=== PATIENT | female | born 1945 | race Caucasian/White ===

== ENCOUNTER → 2025-03-22 09:29 | Outpatient (REF) | payer MEDICARE, SELFPAY | LOC: MRI 3T 09:29 | PROVIDERS: ATTENDING PHYSICIAN Orthopaedic Surgery; FAMILY PHYSICIAN Family Medicine | DX: M79.641 Pain in right hand (principal); S61.204A Unspecified open wound of right ring finger without damage to nail, initial encounter | CPT/HCPCS: 73220; A9575 ==

== ENCOUNTER → 2025-03-27 12:20 | Outpatient (REF) | payer MEDICARE, SELFPAY | LOC: SDSPAT 12:20 | PROVIDERS: ATTENDING PHYSICIAN Orthopaedic Surgery; FAMILY PHYSICIAN Physician Assistant | DX: S61.204A Unspecified open wound of right ring finger without damage to nail, initial encounter (principal); Z01.818 Encounter for other preprocedural examination | CPT/HCPCS: 36415; 93005 ==

== ENCOUNTER 2025-03-31 18:08 | Inpatient (IN) | payer MEDICARE, SELFPAY ==
--- NOTE | 2025-03-26 16:49 | CM ---
TC from Negrita at Dr Simpson office requesting CM reach out to patient re possible home care services as patient lives alone and will be having surgery on 03/31/25. Spoke with patient she would like VN. Patient mentioned she would be leaving with a
PICC line and IV anbx and following up with ID in the office on 04/01. Patient is not aware of which infusion company she would be using. Patient does not feel she can self administer. TC back to Negrita at office, she was not aware of the anbx and
will reach out to patient and have her speak with ID. No services were arranged by this rn field case manager until discharge plan is finalized with surgeon office.
[2025-03-30 13:43] VITALS: BMI 18.6
[2025-03-31] VITALS (14 sets, daily range): BP systolic 110–161; BP diastolic 61–87; BMI 18.6
[2025-03-31] MEDS: NORMOSOL-R/PLASMALYTE-A 1000 IV (08:42)
--- NOTE | 2025-03-31 14:06 | HPS.HSE ---
Addendum entered and electronically signed by Noel Bueno MD 03/31/25 14:33:
This is an addendum to the H&P written by Ángela Saenz on 03/31/2025. Patient seen and examined independently with [facility].
Addendum entered and electronically signed by Noel Bueno MD 03/31/25 14:32:
79-year-old female past medical history of osteoarthritis, gout, rheumatoid arthritis,�migraine with aura presenting for amputation for severe wound affecting the right ring finger with deviation and middle finger. �She had an enlarging mass on the
right fourth finger that she neglected for a year and saw Dr. Yuan 1 month ago.
Prior MRI showed possible osteomyelitis into the metacarpal.
She underwent amputation of right fourth finger and third finger and partial ampuation of 5th digit. �Intraoperative cultures were obtained. 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
Continue empiric cefazolin. �ID consulted to determine regimen of antibiotics. Pain control.�
Written in chart the patient has itchy eyes from Keflex but did tolerate cefazolin in the operating room.
Original Note:
Family Physician
-
Family Physician: Sara Powell
Chief Complaint
-
Status post amputation right third, fourth, partial fifth finger
History of Present Illness
79 Year old female who states Who states she has had ongoing growth to her right 3rd and 4th finger along with the volar surface of her base of the fifth finger x 1 year. She reports it became swollen and red approximately 1 month ago that is when
she decided to have it evaluated by Dr. Yuan she had outpatient MRI showing osteomyelitis into the metacarpal she was started on outpatient Levaquin and then stopped 1 week ago for procedure today which required amputation of the right hand third,
fourth finger and partial proximal phalanx of the fifth finger. She also reports stopping aspirin 81 mg 1 week ago. She tolerated preop IV Ancef despite Keflex allergy with itchy eyes. She does report she gets hallucinations from
oxycodone/Percocet. She had a digital block of her right arm in the OR currently has a long-arm OCL splint in place other digits are pink and interior design professional color. She has past medical history of left hand severe OA mild RA of the DIP and PIP joints,
right handed, rheumatoid arthritis, gout, migraines.
Medical History
Past Medical History
Past Medical History: Reports Other
Additional Past Medical History:
left hand severe OA mild RA of the DIP and PIP joints
right handed
Osteoarthritis hands and feet
rheumatoid arthritis
gout
migraines.
Past Surgical History: Reports Other
Additional Past Surgical History:
Hysterectomy
Bilateral CTR
Left middle finger middle phalanx infection debridement 1979
Left great toe debridement secondary to infection
Tonsillectomy adenoidectomy
Social History
Tobacco: Non-smoker
Alcohol: Occasional
Drug: None
Personal: Single
Living: Alone
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
Family History
Family History: Other (Father prostate cancer, mother history of CAD, father and mother osteoarthritis)
Allergies / Home Medications
Allergies reflects when Allergies were last updated in [employer].
Home Medications with original date entered in [employer]
Allergy/Medication List:
Allergies
Allergy/AdvReac Type Severity Reaction Status Date / Time
oxycodone Allergy Mild Pharmacy Verified 03/31/25 14:00
to Review
methotrexate Allergy Unknown Pharmacy Verified 03/31/25 14:00
to Review
cephalexin (From Keflex) Allergy itchy eyes Verified 03/31/25 08:20
pollen extracts Allergy sneezing,itchy Verified 03/31/25 08:20
eyes,congestion
Home Medications
Fish Oil 1 cap PO DAILY 03/26/25
Vitamin C 1 tab PO DAILY 03/26/25
Vitamin D3 1 cap PO DAILY 03/26/25
levofloxacin 750 mg tablet 750 mg PO DAILY 03/26/25
vitamin B complex 1 tab PO DAILY 03/26/25
vitamin E 1 cap PO DAILY 03/26/25
Benadryl 25 mg PO HS PRN insomnia 03/31/25
Calcium 600 600 mg PO DAILY 03/31/25
Excedrin Migraine 2 tab PO Q6H PRN Migraine headache 03/31/25
acetaminophen 500 mg tablet 500 mg PO Q6H PRN pain 03/31/25
magnesium glycinate 1 chewable tab PO HS 03/31/25
Review of Systems
-
History Source: Patient
A 12 point ROS was completed and negative except as noted: Yes
Constitutional: Denies Fever or Chills
EENT: Denies Sore Throat or Runny Nose
Respiratory: Denies Cough or Trouble Breathing
Cardiac: Denies Chest Pain, Diaphoresis or Palpitations
Abdomen/GI: Denies Abdominal Pain, Nausea, Vomiting, Diarrhea or Constipated
: Denies Dysuria, Frequency, Flank Pain or Incontinence
Musculoskeletal: Reports Other (Status post amputation right third, fourth, partial proximal phalanx fifth finger due to abnormal growth/cellulitis/osteomyelitis); Denies Joint Pain
Skin: Denies Itching or Rash
Neurological: Denies Dizzy, Headache or Weakness
Endocrine: Reports No Symptoms
Hematologic/Lymphatic: Reports No Symptoms
Psych: Reports Calm
Physical Exam
Vital Signs
Vital Signs
Temp Pulse Resp BP Pulse Ox
97.8 F 81 23 118/63 94
03/31/25 12:38 03/31/25 13:30 03/31/25 13:30 03/31/25 13:30 03/31/25 13:35
Physical Exam
General: No Pain, Fever or Chills
HEENT: NormoCephalic, Anicteric, Moist mucous membranes, PERRLA, [place] Conjunctivae and No Ptosis
Respiratory: Clear; No Wheezes, Rales or Rhonchi
Cardiac: S1/S2 and Regular Rhythm
Breast: Deferred by me
GI: Soft, Non Tender, Non Distended, Normal Bowel Sounds and No Hepatosplenomegaly
Rectal: Deferred by Provider
Musculoskeletal: No Clubbing, No Cyanosis, No Edema and Other (Status post amputation right third, fourth, partial proximal phalanx fifth finger due to abnormal growth/cellulitis/osteomyelitis with long-arm OCL splint in place, digital block in
operating room currently still numb thumb index finger pink, warm, left hand deformities of the DIP and PIP joints on )
Skin: Warm and Dry; No Rash
Neuro: AO x 3, Cranial Nerves Intact and No Sensory Deficits; No Slurred Speech, Facial Droop, Tremors or Sedated
Psych: Calm
Data Reviewed
-
Diagnostic Radiology: Report Reviewed by me
Impression/Plan
-
Impression/plan:
Postop admission MedSurg
#Status post amputation right third, fourth, partial fifth finger due to osteomyelitis/abnormal growth/cellulitis concern for malignancy
-Patient received digital block in the operating room
-Patient tolerated IV Ancef preop will continue
- Consult infectious disease
- Continue current OCL splint in place
- Pain control will try Vicodin as patient reports hallucinations to Percocet in past, IV Dilaudid for severe pain
- IV Zofran as needed
- Regular diet
- Pending culture of amputated sites-concern for malignancy may require outpatient follow-up heme onc
-May continue on aspirin 81 mg daily per Ortho
- Consult PT/case management
#History of severe osteoarthritis
#Chronic deformities to bilateral hands DIP PIP joints and bilateral toes
- May resume, her vitamin D , calcium at home
#History RA
Reports severe reaction to methotrexate in the past no longer on meds
#History of migraines no current migraine
May take own Excedrin as needed
#Insomnia
Continue as needed Benadryl and magnesium glycine 8 at bedtime
DVT prophylaxis
SCDs
Full code
--- NOTE | 2025-03-31 14:30 | CON.ID ---
Consultation
-
Date/Time Consultation Requested: 03/31/2025 1415
Date/Time Consultation Performed: 03/31/2025 1430
Requesting Provider: KISHA Hammonds
Performing Provider: Dr. Di Patterson
Reason for Consultation: Osteo vs cancer of finger
Chief Complaint / Past History
Chief Complaint
Right 4th finger wound
History of Present Illness
79 year old female with , gout is seen at the request of KISHA Hammonds for possible finger osteomyelitis. She reports she has a growth/mass over the proximal 4th finger (palm side) for more than 1 year. The growth extended to the proximal
middle finger. Eventually the whole fourth finger tissue became thickened. 2 months ago, the 4th finger became more swollen. No fevers or chills. No purulent drainage. She went to on 03/15; culture swabbed and she was placed on doxycycline plus
Bactrim. She was referred to and seen by Ortho 03/18. There was concern for cancer. MRI recommended for eventual amputation. In the meantime, the 03/15 wound swab grew Pseudomonas (pansensitive), Bacteroides, and staph epi; Urgent care called her
and replaced doxy/Bactrim with levofloxacin 750mg po qd without improvement. MRI showed large amt of irregular enhancing soft tissue about the 4th and 3rd fingers with destructive changes proximally, signal change mid to distal 4th metacarpal. Pt
instructed to dc abx on 03/25 in preparation for finger amputation. Today. she underwent 3rd and 4th finger amputations, and partial 5th digit amputation. Path and cx pending.
Past History
Additional Past Medical History:
Migraine WILKINS
Severe arthritis of bilateral hands and toes
hx Gout (toe)
Additional Past Surgical History:
Hysterectomy
bilateral carpal tunnel release
Toe surgery from gout
left 4th middle finger surgery - gout vs infection
Allergy History:
oxycodone Allergy (Mild, Verified 03/31/25 14:00)
Pharmacy to Review
methotrexate Allergy (Unknown, Verified 03/31/25 14:00)
Pharmacy to Review
cephalexin (From [facility])
GI upset
pollen extracts Allergy (Verified 03/31/25 08:20)
sneezing,itchy eyes,congestion
Medications Reviewed: Yes
Current Antibiotics:
Cefazolin
Social History
Tobacco: Non-Smoker
Alcohol: None
Drug: None
Living: Alone
Family History
Family History: Not Pertinent
Review of Systems
Review of Systems
General: Negative Fever, Chills or Change in Appetite
HEENT: Negative Sinus Problems or Headache
Cardiovascular: Negative Chest Pain or Dyspnea
Respiratory: Negative Dyspnea or Cough
Gasteroenterology: Negative Weight Loss, Nausea, Vomiting or Diarrhea
Genital / Urological: Negative Dysuria or Flank Pain
Endocrine: Negative Weakness
All systems: All other systems were reviewed and were negative
Vital Signs
Temp Pulse Resp BP Pulse Ox
97.8 F 81 18 123/67 96
03/31/25 13:50 03/31/25 14:15 03/31/25 14:15 03/31/25 14:15 03/31/25 14:15
Physical Exam
Physical Exam
Constitutional: No Acute Distress, Comfortable and Cachetic
Head: Other (No frontal or maxillary sinus tenderness)
Eyes: No Conjunctival Hemorrhage and Sclera Anicteric
Cardiovascular: Regular Rate and S1/S2
Pulmonary: Clear
Gastrointestinal: Soft, Non Tender, Non Distended and Normal Bowel Sounds
Extremities: Negative Edema
Wound: Other (Right hand post-op dressing in place)
Neurological: AO x 3
Microbiology Results
Micro:
03/31/25 12:30 Tissue Culture - Pending
Bone Gram Stain - Pending
03/22/25 MRI RUE wo and w contrast: Large amount of irregular enhancing soft tissue about the fourth finger proximal and middle phalanges. Primary considerations include marked soft tissue pannus formation in the setting of a severe inflammatory
arthropathy such as rheumatoid arthritis, versus a malignant mass. Destructive changes and signal alteration of the fourth proximal and middle phalanges, and signal alteration of the mid to distal fourth metacarpal, which may be secondary to a
severe inflammatory arthropathy, malignancy, or potentially osteomyelitis if there are signs and symptoms of infection. Recommend clinical correlation with consideration for soft tissue sampling if indicated.
Assessment / Plan
# Suspected malignancy of right 3rd and 4th fingers
- 03/31 s/p amputations of 3rd/4th digits, partial amp 5th digit
- Await bone path, bone cx
- I don't anticipate need for prolonged IV abx, unless evidence of osteo on pathology without achieving surgical cure.
- Case management consulted for placement as per family request.
--- NOTE | 2025-03-31 15:35 | CM ---
Addendum entered by Maria E Pleitez RN 03/31/25 16:05:
CM spoke with patient and daughter. THey are agreeable to SNF. Patient and family would like [facility], [facility] or [facility]. Patient's [facility] choice [facility].
CM sent referral via [facility].
Original Note:
CM spoke with patient at length regarding SNF placement via phone. Patient understands she will need placement.
--- NOTE | 2025-03-31 16:13 | CM ---
Addendum entered by Maria E Pleitez RN 03/31/25 16:15:
Patient is not eligible for [employer] Waiver.
Original Note:
CM inquired if patient is [employer] eligible. CM will await feedback.
[2025-03-31] MEDS: TYLENOL 650 MG PO (16:21)
[2025-03-31] MEDS: ANCEF 5 IV (19:45)
[2025-03-31] MEDS: LOW STRENGTH ASPIRIN 81 MG PO (19:45)
[2025-03-31] MEDS: NORCO 5/325 1 TABLET PO (19:50)
[2025-03-31 20:13] LABS: Hematocrit 31.3 % (37.0-47.0); Hemoglobin 9.4 g/dL (12.0-16.0); Mean Corp Hgb Conc. 30.0 g/dL (33.0-37.0); Mean Corpuscular Volume 106.5 fL (81.0-99.0); Nucleated Red Blood Cells % 0.2 %; Platelet Count 243 10^3/uL (130-400); Red Cell Dist. Width 15.9 % (11.5-14.5)
[2025-03-31 20:29] LABS: ALT (SGPT) 13 U/L (0-35); AST (SGOT) 18 U/L (14-36); Albumin 3.1 g/dl (3.5-5.0); Alkaline Phosphatase 100 U/L (38-126); Blood Urea Nitrogen 14 mg/dl (7-17); Calcium 8.1 mg/dl (8.4-10.2); Carbon Dioxide 26 mmol/L (22-30); Chloride 103 mmol/L (98-107); Estimated Creatinine Clearance 52 ml/min; Glucose 149 mg/dl (70-99); Potassium 4.6 mmol/L (3.5-5.1); Sodium 133 mmol/L (135-145); Total Protein 5.4 g/dl (6.3-8.2); eGFR > 60.00
[2025-04-01] MEDS: DILAUDID 0.5 MG IV ×2 (02:14→08:31)
[2025-04-01] MEDS: ANCEF 5 IV (04:47)
[2025-04-01 08:05] LABS: Hematocrit 29.4 % (37.0-47.0); Hemoglobin 8.8 g/dL (12.0-16.0); Mean Corp Hgb Conc. 29.9 g/dL (33.0-37.0); Mean Corpuscular Volume 109.3 fL (81.0-99.0); Nucleated Red Blood Cells % 0 %; Platelet Count 203 10^3/uL (130-400); Red Cell Dist. Width 15.9 % (11.5-14.5)
[2025-04-01 08:17] VITALS: BP 136/75
[2025-04-01] MEDS: LOW STRENGTH ASPIRIN 81 MG PO ×2 (08:27→19:45)
[2025-04-01 08:37] LABS: ALT (SGPT) 10 U/L (0-35); AST (SGOT) 22 U/L (14-36); Albumin 2.8 g/dl (3.5-5.0); Alkaline Phosphatase 82 U/L (38-126); Blood Urea Nitrogen 11 mg/dl (7-17); Calcium 7.9 mg/dl (8.4-10.2); Carbon Dioxide 28 mmol/L (22-30); Chloride 107 mmol/L (98-107); Estimated Creatinine Clearance 52 ml/min; Glucose 86 mg/dl (70-99); Potassium 4.2 mmol/L (3.5-5.1); Sodium 135 mmol/L (135-145); Total Protein 4.8 g/dl (6.3-8.2); eGFR > 60.00
--- NOTE | 2025-04-01 09:23 | CM ---
Addendum entered by Annemarie Ybarra RN 04/01/25 15:35:
Patient agreeable with [facility]. CM spoke with [facility]. Will have a bed on Sunday for patient. No precert required.
Original Note:
Reviewed the chart notes and spoke with the patient at the bedside. Reviewed with the patient that [facility] and [facility] would need financial application prior to admission. CM continues to be available to patient/family and is
monitoring medical plan for needs at discharge.
Plan: Discharge to SNF/rehab prior to transitioning back to home.
[2025-04-01 11:25] VITALS: BP 120/66
[2025-04-01 11:49] VITALS: BP 122/74; PULSE 80; O2SAT 100
[2025-04-01 12:08] VITALS: BMI 18.6
[2025-04-01] MEDS: ANCEF IV (12:30)
[2025-04-01] MEDS: NORCO 5/325 1 TABLET PO ×3 (13:09→21:37)
--- NOTE | 2025-04-01 13:32 | W.PN.ID1 ---
Date of Service
Date of Service: April 01, 2025
Today's Communication
Change abx to cefepime.
Assessment / Plan
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
- 03/31 s/p amputations of 3rd/4th digits, partial amp 5th digit
- Await bone path
- Tissue cx GNR
- Replace cefazolin with cefepime 1g IVq6h
- If path not available by Sunday, anticipate dc to SNF on IV abx pending final bone pathology
Chief Complaint
-: Other (finger issue)
Subjective / Review of Systems
c/o post-op pain, will ask for Dilaudid after lunch.
Vital Signs / Physical Exam
Vital Signs
Vital Signs
Temp Pulse Resp BP Pulse Ox
98 F 69 16 136/75 98
04/01/25 08:17 04/01/25 08:17 04/01/25 08:17 04/01/25 08:17 04/01/25 08:17
Physical Exam
Constitutional: No Acute Distress and Comfortable
Cardiovascular: Regular Rate and S1/S2
Pulmonary: Clear
Gastrointestinal: Soft, Non Tender, Non Distended and Normal Bowel Sounds
Genito-Urinary: Negative CVA Tenderness
Extremities: Negative Edema
Wound: Other (right hand post-op dressing in place)
Neurological: AO x 3
Objective Data
Lab Data
Lab Results
04/01/25 07:05
04/01/25 07:05
Estimated Creat Clear 52 ml/min 04/01/25 07:05
Total Bilirubin 0.3 mg/dl (0.2-1.3) 04/01/25 07:05
AST 22 U/L (14-36) 04/01/25 07:05
ALT 10 U/L (0-35) 04/01/25 07:05
Alkaline Phosphatase 82 U/L (38-126) 04/01/25 07:05
Most recent labs reviewed.
Micro Results:
03/31/25 12:30 Tissue Culture - Preliminary
Bone Gram negative bacilli
Gram Stain - Preliminary
03/22/25 MRI RUE wo and w contrast: Large amount of irregular enhancing soft tissue about the fourth finger proximal and middle phalanges. Primary considerations include marked soft tissue pannus formation in the setting of a severe inflammatory
arthropathy such as rheumatoid arthritis, versus a malignant mass. Destructive changes and signal alteration of the fourth proximal and middle phalanges, and signal alteration of the mid to distal fourth metacarpal, which may be secondary to a
severe inflammatory arthropathy, malignancy, or potentially osteomyelitis if there are signs and symptoms of infection. Recommend clinical correlation with consideration for soft tissue sampling if indicated.
[2025-04-01] MEDS: STERILE WATER FOR INJECTION 10 ML IV ×2 (14:30→19:46)
[2025-04-01] MEDS: MAXIPIME 1000 MG IV ×2 (14:30→19:45)
--- NOTE | 2025-04-01 15:19 | W.PN.HOSP.TC ---
Today's Communication/Plan
-
Assessment / Plan
Assessment / Plan
General: No Apparent Distress, Comfortable and Conversant
HEENT: NormoCephalic, Moist mucous membranes, Atraumatic
Respiratory: Clear and Non Labored Respirations
Cardiac: S1/S2 and Regular Rhythm; No Rub or Gallop
GI: Soft, Non Tender, Non Distended and Normal Bowel Sounds
Musculoskeletal: No Edema, right hand with the surgical dressing in place with wrap extending to just distal to the elbow
Skin: Warm and dry
: NO Haji
Neuro: Awake, Alert, Nonfocal/grossly intact
Psych: Calm and Intact Judgment/Insight
Ms. Doan is a 79-year-old female with a medical history of severe osteoarthritis, rheumatoid arthritis, migraines, and recent diagnosis of melanoma of right hand who was admitted following amputation of her right 3rd and 4th fingers along with the
volar aspect at the base of her fifth finger.
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
- Status post amputation of right 3rd and 4th digit with additional partial amputation of fifth digit
- Tolerated procedure well
- Continue pain control as needed
- Antibiotics switched to cefepime
- Awaiting bone pathology
Migraines:
- Fioricet as needed
DVT prophylaxis: SCDs
CODE STATUS: Full code
Anticipated Discharge: > 48 hours
Subjective/Interval History
-
Date of Service: April 01, 2025
Patient was seen and examined at bedside this morning. She was admitted following amputation of multiple digits on her right hand. Having pain in her right hand now that nerve block has worn off.
Objective Data
-
Labs:
Laboratory Results
04/01/25
07:05
WBC 6.1
Hgb 8.8 L
Hct 29.4 L
Plt Count 203
Sodium 135
Potassium 4.2
Chloride 107
Carbon Dioxide 28
BUN 11
Creatinine 0.5 L
Glucose 86
Calcium 7.9 L
Total Bilirubin 0.3
AST 22
ALT 10
Alkaline Phosphatase 82
Vital Signs:
Vital Signs
Temp Pulse Resp BP Pulse Ox
98 F 69 16 136/75 98
04/01/25 08:17 04/01/25 08:17 04/01/25 08:17 04/01/25 08:17 04/01/25 08:17
I&O
03/31/25 04/01/25 04/02/25
06:59 06:59 06:59
Intake Total 920 / 920
Balance 920 / 920
Review of Systems
-
History Source: Patient
All other systems: Reviewed and negative
Musculoskeletal: Reports Joint Pain (Right hand pain)
Neuro: Reports Headache
Physical Exam
-
General: No Apparent Distress
[2025-04-01 15:30] VITALS: BP 125/73
[2025-04-01 23:18] VITALS: BP 125/66
[2025-04-02] MEDS: STERILE WATER FOR INJECTION 10 ML IV ×4 (01:34→20:01)
[2025-04-02] MEDS: NORCO 5/325 1 TABLET PO ×5 (01:35→19:59)
[2025-04-02] MEDS: MAXIPIME 1000 MG IV ×4 (01:35→20:01)
[2025-04-02 06:42] LABS: Hematocrit 31.2 % (37.0-47.0); Hemoglobin 9.1 g/dL (12.0-16.0); Mean Corp Hgb Conc. 29.2 g/dL (33.0-37.0); Mean Corpuscular Volume 110.6 fL (81.0-99.0); Nucleated Red Blood Cells % 0 %; Platelet Count 214 10^3/uL (130-400); Red Cell Dist. Width 15.9 % (11.5-14.5)
[2025-04-02 06:58] LABS: ALT (SGPT) 11 U/L (0-35); AST (SGOT) 16 U/L (14-36); Albumin 2.8 g/dl (3.5-5.0); Alkaline Phosphatase 93 U/L (38-126); Blood Urea Nitrogen 13 mg/dl (7-17); Calcium 8.1 mg/dl (8.4-10.2); Carbon Dioxide 29 mmol/L (22-30); Chloride 106 mmol/L (98-107); Estimated Creatinine Clearance 52 ml/min; Glucose 87 mg/dl (70-99); Potassium 4.2 mmol/L (3.5-5.1); Sodium 136 mmol/L (135-145); Total Protein 4.8 g/dl (6.3-8.2); eGFR > 60.00
--- NOTE | 2025-04-02 07:35 | W.PN.UPDATE ---
Update Note
Progress Note Update
The patient was seen and examined by Orthopedic surgery on rounds. POD #2 RIGHT ring and middle finger ray amputation, Z-plasty closure and full-thickness skin graft performed on 03/31/2025 under the direction of Dr. Yuan. Tissue culture (+) GNR. On
Cefepime 1gIV q6h per ID. Bone pathology pending. Maintain surgical dressing/splint and patient will return to the office in about a week for a wound check. Planning on removing the sutures approximately 2 to 3 weeks from the surgery. Orthopedic
surgery will continue to follow along.
[2025-04-02] MEDS: FIORICET 1 TAB PO (07:52)
[2025-04-02] MEDS: LOW STRENGTH ASPIRIN 81 MG PO ×2 (07:54→19:59)
[2025-04-02 07:55] VITALS: BP 144/68
--- NOTE | 2025-04-02 11:06 | W.PN.ID1 ---
Date of Service
Date of Service: April 02, 2025
Today's Communication
See below.
Assessment / Plan
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
- 03/31 s/p amputations of 3rd/4th digits, partial amp 5th digit
- Await bone path
- Tissue cx Pseudomonas
- Continue cefepime 1g IVq6h x 6 weeks through 05/12/25.
If final bone pathology shows no osteo, will call SNF to dc abx.
Follow weekly CBC and CMP while on abx.
- Infusion sheet submitted to rn case mgr.
- Place PICC tomorrow.
Chief Complaint
-: Other (finger issue)
Subjective / Review of Systems
Currently experiencing migraine headaches.
Vital Signs / Physical Exam
Vital Signs
Vital Signs
Temp Pulse Resp BP Pulse Ox
97.5 F 71 18 144/68 96
04/02/25 07:55 04/02/25 07:55 04/02/25 07:55 04/02/25 07:55 04/02/25 07:55
Physical Exam
Constitutional: No Acute Distress
Cardiovascular: Regular Rate and S1/S2
Pulmonary: Clear
Gastrointestinal: Soft, Non Tender, Non Distended and Normal Bowel Sounds
Genito-Urinary: Negative CVA Tenderness
Extremities: Negative Edema
Wound: Other (right hand post-op dressing in place)
Neurological: AO x 3
Objective Data
Lab Data
Lab Results
04/02/25 06:07
04/02/25 06:07
Estimated Creat Clear 52 ml/min 04/02/25 06:07
Total Bilirubin 0.1 mg/dl (0.2-1.3) L 04/02/25 06:07
AST 16 U/L (14-36) 04/02/25 06:07
ALT 11 U/L (0-35) 04/02/25 06:07
Alkaline Phosphatase 93 U/L (38-126) 04/02/25 06:07
Most recent labs reviewed.
Micro Results:
03/31/25 12:30 Tissue Culture - Preliminary
Bone Pseudomonas aeruginosa
Gram Stain - Preliminary
03/22/25 MRI RUE wo and w contrast: Large amount of irregular enhancing soft tissue about the fourth finger proximal and middle phalanges. Primary considerations include marked soft tissue pannus formation in the setting of a severe inflammatory
arthropathy such as rheumatoid arthritis, versus a malignant mass. Destructive changes and signal alteration of the fourth proximal and middle phalanges, and signal alteration of the mid to distal fourth metacarpal, which may be secondary to a
severe inflammatory arthropathy, malignancy, or potentially osteomyelitis if there are signs and symptoms of infection. Recommend clinical correlation with consideration for soft tissue sampling if indicated.
--- NOTE | 2025-04-02 11:10 | CM ---
Addendum entered by Annemarie Ybarra RN 04/02/25 16:07:
IMM reviewed.
Original Note:
Reviewed the chart notes and spoke with the patient at the bedside. Reviewed with patient that [facility] will have a bed tomorrow. Patient's daughtger will provide transportation SNF. CM continues to be available to patient/family and is monitoring
medical plan for needs at discharge.
Plan: Discharge to [facility] tomorrow (Sunday). No precert required.
Call report to: [phone]
Fax report to: [phone]
--- NOTE | 2025-04-02 13:38 | W.PN.HOSP.TC ---
Today's Communication/Plan
-
Assessment / Plan
Assessment / Plan
General: No Apparent Distress, having a migraine
HEENT: NormoCephalic, Moist mucous membranes, Atraumatic
Respiratory: Clear and Non Labored Respirations
Cardiac: S1/S2 and Regular Rhythm; No Rub or Gallop
GI: Soft, Non Tender, Non Distended and Normal Bowel Sounds
Musculoskeletal: No Edema, right hand with the surgical dressing in place with wrap extending to just distal to the elbow
Skin: Warm and dry
: NO Haji
Neuro: Awake, Alert, Nonfocal/grossly intact
Psych: Calm and Intact Judgment/Insight
Ms. Doan is a 79-year-old female with a medical history of severe osteoarthritis, rheumatoid arthritis, migraines, and recent diagnosis of melanoma of right hand who was admitted following amputation of her right 3rd and 4th fingers along with the
volar aspect at the base of her fifth finger.
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
- Status post amputation of right 3rd and 4th digit with additional partial amputation of fifth digit
- Tolerated procedure well
- Bone cultures growing Pseudomonas, ID recommending continuing cefepime 1 g IV every 6 hours for 6 weeks through 05/12/2025
- Planning PICC placement tomorrow
- Continue pain control as needed
Migraines:
- Fioricet as needed
DVT prophylaxis: SCDs
CODE STATUS: Full code
Anticipated Discharge: 24 - 48 hours
Subjective/Interval History
-
Date of Service: April 02, 2025
Patient was seen and examined at bedside this morning. Had another migraine headache, some relief with medications.
Objective Data
-
Labs:
Laboratory Results
04/02/25
06:07
WBC 5.1
Hgb 9.1 L
Hct 31.2 L
Plt Count 214
Sodium 136
Potassium 4.2
Chloride 106
Carbon Dioxide 29
BUN 13
Creatinine 0.5 L
Glucose 87
Calcium 8.1 L
Total Bilirubin 0.1 L
AST 16
ALT 11
Alkaline Phosphatase 93
Vital Signs:
Vital Signs
Temp Pulse Resp BP Pulse Ox
97.5 F 71 18 144/68 96
04/02/25 07:55 04/02/25 07:55 04/02/25 07:55 04/02/25 07:55 04/02/25 07:55
I&O
04/01/25 04/02/25 04/03/25
06:59 06:59 06:59
Intake Total 920 / 920 480 / 480
Balance 920 / 920 480 / 480
Review of Systems
-
History Source: Patient
All other systems: Reviewed and negative
Neuro: Reports Headache (Migraine)
Physical Exam
-
General: No Apparent Distress
[2025-04-02 15:20] VITALS: BP 120/63
[2025-04-02 15:44] VITALS: BP 120/63
[2025-04-02] MEDS: SENOKOT-S 1 TABLET PO (21:36)
[2025-04-02 23:18] VITALS: BP 114/58
[2025-04-03] MEDS: NORCO 5/325 1 TABLET PO ×4 (00:12→13:21)
[2025-04-03] MEDS: MAXIPIME 1000 MG IV ×3 (02:20→15:00)
[2025-04-03] MEDS: STERILE WATER FOR INJECTION 10 ML IV ×3 (02:20→15:01)
--- NOTE | 2025-04-03 04:24 | PTCARENOTE ---
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
[2025-04-03 07:50] VITALS: BP 135/64
--- NOTE | 2025-04-03 07:56 | W.PN.UPDATE ---
Update Note
Progress Note Update
The patient was seen and examined by Orthopedic surgery on rounds. POD #3 RIGHT ring and middle finger ray amputation, Z-plasty closure and full-thickness skin graft performed on 03/31/2025 under the direction of Dr. Yuan. Tissue culture (+)
Psuedomonas aeruginosa. On Cefepime 1gIV q6h per ID - appreciate their recommendations. Bone pathology pending. Plan for PICC line placement today with discharge to rehab to assist with IV antibiotics post operatively. Maintain surgical
dressing/splint and patient will return to the office in about a week for a wound check. Planning on removing the sutures approximately 2 to 3 weeks from the surgery. Orthopedic surgery will continue to follow along.
[2025-04-03] MEDS: LOW STRENGTH ASPIRIN 81 MG PO (08:59)
--- NOTE | 2025-04-03 11:02 | W.PN.ID1 ---
Date of Service
Date of Service: April 03, 2025
Today's Communication
DC to SNF today.
Assessment / Plan
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
- 03/31 s/p amputations of 3rd/4th digits, partial amp 5th digit
- Await bone path
- Tissue cx Pseudomonas
- Continue cefepime 1g IVq6h x 6 weeks through 05/12/25.
If final bone pathology shows no osteo, will call SNF to dc abx.
Follow weekly CBC and CMP while on abx.
- Infusion sheet submitted to case hardener.
- Place PICC today.
- For DC to SNF today.
Chief Complaint
-: Other (finger issue)
Subjective / Review of Systems
Feels well.
Vital Signs / Physical Exam
Vital Signs
Vital Signs
Temp Pulse Resp BP Pulse Ox
97.9 F 72 18 135/64 97
04/03/25 07:50 04/03/25 07:50 04/03/25 07:50 04/03/25 07:50 04/03/25 07:50
Physical Exam
Constitutional: No Acute Distress
Cardiovascular: Regular Rate and S1/S2
Pulmonary: Clear
Gastrointestinal: Soft, Non Tender, Non Distended and Normal Bowel Sounds
Extremities: Negative Edema
Wound: Other (right hand post-op dressing in place)
Neurological: AO x 3
Objective Data
Lab Data
Lab Results
04/02/25 06:07
04/02/25 06:07
Estimated Creat Clear 52 ml/min 04/02/25 06:07
Total Bilirubin 0.1 mg/dl (0.2-1.3) L 04/02/25 06:07
AST 16 U/L (14-36) 04/02/25 06:07
ALT 11 U/L (0-35) 04/02/25 06:07
Alkaline Phosphatase 93 U/L (38-126) 04/02/25 06:07
Most recent labs reviewed.
Micro Results:
03/31/25 12:30 Tissue Culture - Final
Bone Pseudomonas aeruginosa
Gram Stain - Final
Procedure Result Verified
Tissue Culture Final 04/03/25-857
Few Pseudomonas aeruginosa
CRITICAL VALUE called to and read back verification by
[id number] on 04/01/25 at 1126 by [email or web address]. COPY PRINTED to
printer #[id number]
Organism 1 Pseudomonas aeruginosa
1. Pseudomonas aeruginosa
M.I.C. RX
--------- ---
Aztreonam <=4 S
Cefepime <=2 S
Ceftazidime 4 S
Ciprofloxacin <=0.25 S
Meropenem <=1 S
Piperacillin/Tazobactam <=8 S
Tobramycin <=2 S
03/22/25 MRI RUE wo and w contrast: Large amount of irregular enhancing soft tissue about the fourth finger proximal and middle phalanges. Primary considerations include marked soft tissue pannus formation in the setting of a severe inflammatory
arthropathy such as rheumatoid arthritis, versus a malignant mass. Destructive changes and signal alteration of the fourth proximal and middle phalanges, and signal alteration of the mid to distal fourth metacarpal, which may be secondary to a
severe inflammatory arthropathy, malignancy, or potentially osteomyelitis if there are signs and symptoms of infection. Recommend clinical correlation with consideration for soft tissue sampling if indicated.
--- NOTE | 2025-04-03 11:28 | W.DCSUMMARY ---
Discharge Summary
Discharge Data
Date of Admission: 03/31/25
Date of Discharge: 04/03/25
Total time spent discharging patient (in min): 40
-
Pending Results: No
Hospital Course
Ms. Doan is a 79-year-old female with a medical history of severe osteoarthritis, rheumatoid arthritis, migraines, and recent diagnosis of melanoma of right hand who was admitted following amputation of her right 3rd and 4th fingers along with the
volar aspect at the base of her fifth finger. She tolerated the procedure well. Operative cultures grew Pseudomonas aeruginosa. She was started on antibiotic treatment with IV cefepime 1 g every 8 hours which she will continue for 6 weeks through
05/12/2025. A PICC line was placed prior to her being discharged to SNF where she will continue IV antibiotic treatment. She will follow-up in the orthopedic office in 1 week for a wound check. They are planning to remove the sutures in 2 to 3
weeks postoperatively. Her pain has been adequately controlled with acetaminophen and hydromorphone. Also of note, she developed a migraine headache during her hospitalization which resolved with Fioricet. She should continue taking Fioricet as
needed for migraines. At time of hospital discharge she was medically stable.
General: No Apparent Distress, comfortable and conversant
HEENT: NormoCephalic, Moist mucous membranes, Atraumatic
Respiratory: Clear and Non Labored Respirations
Cardiac: S1/S2 and Regular Rhythm; No Rub or Gallop
GI: Soft, Non Tender, Non Distended and Normal Bowel Sounds
Musculoskeletal: No Edema, right hand with the surgical dressing in place with wrap extending to just distal to the elbow
Skin: Warm and dry
: NO Haji
Neuro: Awake, Alert, Nonfocal/grossly intact
Psych: Calm and Intact Judgment/Insight
Discharge Plan
-
Patient Disposition: [facility]/SNF
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
Activity Restrictions/Additional Instructions:
You were hospitalized following surgery for amputation of multiple fingers in your right hand. You tolerated the procedure well. Cultures showed that the bone was infected with a bacteria called Pseudomonas. You are being treated with intravenous
antibiotics for 6 weeks for treatment of this bone infection. You should return to the orthopedic office in approximately 1 week for a wound check. Your surgeons are planning to remove the sutures in 2 to 3 weeks. During your hospitalization you
had a migraine headache which resolved after taking Fioricet. You should continue Fioricet as needed for migraines in the future.
Referrals:
Sara Powell PA [Family Provider, Family Practice]
Chavo Yuan MD [Active, Orthopedics] - in one week
Prescriptions:
New
cefepime 1 gram Recon Soln
1,000 mg IV Q6H 40 Days Qty: 240 0RF
hydrocodone-acetaminophen 5-325 mg Tablet
1 tab PO Q4HPRN PRN (Reason: mod pain) Qty: 12 0RF
sennosides-docusate sodium [Senna Plus] 8.6-50 mg Tablet
1 tab PO BIDPRN PRN (Reason: constipation) Qty: 12 0RF
dbjmxizeja-gygngbrtyqijk-qfzz 50-325-40 mg Tablet
1 tab PO Q6HPRN PRN (Reason: migraines) Qty: 20 0RF
Continued
Fish Oil
1 cap PO DAILY
Vitamin C
1 tab PO DAILY
Vitamin D3
1 cap PO DAILY
vitamin B complex
1 tab PO DAILY
vitamin E
1 cap PO DAILY
acetaminophen 500 mg Tablet
500 mg PO Q6H PRN (Reason: pain)
Benadryl
25 mg PO HS PRN (Reason: insomnia)
Calcium 600
600 mg PO DAILY
magnesium glycinate
1 chewable tab PO HS
Aspir-81
81 mg PO DAILY
Held
Excedrin Migraine
2 tab PO Q6H PRN (Reason: Migraine headache )
Hold Instructions: Restart as needed, patient has better response to Fioricet which has been ordered
Discontinued
levofloxacin 750 mg Tablet
750 mg PO DAILY
Discharge Orders:
Discharge Patient (As Directed); Ordered 04/03/25
Ordered By: Jewel Canales
Discharge Date and Time
Print Language: [id number]
[2025-04-03] MEDS: PREVNAR 20 0.5 ML IM (14:58)
[2025-04-03 15:55] VITALS: BP 176/94
== END 2025-04-03 16:25 | DRG 475 ==
LOC: 2 SOUTH 18:08
PROVIDERS: Clinical Nurse Specialist Family Health; ADMITTING PHYSICIAN Hospitalist; ATTENDING PHYSICIAN Internal Medicine; CONSULT PHYSICIAN Internal Medicine Infectious Disease; CONSULT PHYSICIAN Orthopaedic Surgery; FAMILY PHYSICIAN Physician Assistant
PROC: 0X6J0ZC Detachment at Right Hand, Partial 3rd Ray, Open Approach (ICD-10-PCS; 2025-03-31)
PROC: 0X6 Anatomical Regions, Upper Extremities, Detachment (ICD-10-PCS; 2025-03-31)
PROC: 3E0234Z Introduction of Serum, Toxoid and Vaccine into Muscle, Percutaneous Approach (ICD-10-PCS; 2025-04-03)
PROC: 02HV33Z Insertion of Infusion Device into Superior Vena Cava, Percutaneous Approach (ICD-10-PCS; 2025-04-03)
DX: C79.51 Secondary malignant neoplasm of bone (principal); M86.8X4 Other osteomyelitis, hand; C44.622 Squamous cell carcinoma of skin of right upper limb, including shoulder; M10.9 Gout, unspecified; M19.041 Primary osteoarthritis, right hand; B96.5 Pseudomonas (aeruginosa) (mallei) (pseudomallei) as the cause of diseases classified elsewhere; M19.042 Primary osteoarthritis, left hand; G43.909 Migraine, unspecified, not intractable, without status migrainosus; M06.9 Rheumatoid arthritis, unspecified; K59.00 Constipation, unspecified; G47.00 Insomnia, unspecified; Z23 Encounter for immunization; Z79.82 Long term (current) use of aspirin; Z79.899 Other long term (current) drug therapy; Z88.1 Allergy status to other antibiotic agents; Z90.710 Acquired absence of both cervix and uterus
CPT/HCPCS: 71045; 80053; 85025; 87070; 87077; 87176; 87186; 87205; 88304; 88307; 88311; 90677; 97161; 97167; G0009

== ENCOUNTER → 2025-04-06 09:58 | Outpatient (REF) | payer OTHER, MEDICARE, SELFPAY ==
[2025-04-06 11:28] LABS: Hematocrit 29.1 % (37.0-47.0); Hemoglobin 9.0 g/dL (12.0-16.0); Mean Corp Hgb Conc. 30.9 g/dL (33.0-37.0); Mean Corpuscular Volume 107.8 fL (81.0-99.0); Platelet Count 268 10^3/uL (130-400); Red Cell Dist. Width 15.7 % (11.5-14.5)
[2025-04-06 11:47] LABS: ALT (SGPT) 10 U/L (0-35); AST (SGOT) 16 U/L (14-36); Albumin 2.9 g/dl (3.5-5.0); Alkaline Phosphatase 102 U/L (38-126); Blood Urea Nitrogen 13 mg/dl (7-17); Calcium 8.1 mg/dl (8.4-10.2); Carbon Dioxide 27 mmol/L (22-30); Chloride 106 mmol/L (98-107); Glucose 89 mg/dl (70-99); Potassium 4.0 mmol/L (3.5-5.1); Sodium 135 mmol/L (135-145); Total Protein 5.1 g/dl (6.3-8.2); eGFR > 60.00
== END ==
LOC: OLABWHC 09:58
PROVIDERS: ATTENDING PHYSICIAN Family Medicine
DX: M86.9 Osteomyelitis, unspecified (principal)
CPT/HCPCS: 36415; 80053; 85027

== ENCOUNTER → 2025-04-13 10:39 | Outpatient (REF) | payer OTHER, MEDICARE, SELFPAY ==
[2025-04-13 12:01] LABS: Hematocrit 29.3 % (37.0-47.0); Hemoglobin 8.6 g/dL (12.0-16.0); Mean Corp Hgb Conc. 29.4 g/dL (33.0-37.0); Mean Corpuscular Volume 106.9 fL (81.0-99.0); Platelet Count 219 10^3/uL (130-400); Red Cell Dist. Width 15.6 % (11.5-14.5)
[2025-04-13 12:23] LABS: ALT (SGPT) 15 U/L (0-35); AST (SGOT) 18 U/L (14-36); Albumin 2.9 g/dl (3.5-5.0); Alkaline Phosphatase 102 U/L (38-126); Blood Urea Nitrogen 9 mg/dl (7-17); Calcium 8.2 mg/dl (8.4-10.2); Carbon Dioxide 28 mmol/L (22-30); Chloride 106 mmol/L (98-107); Glucose 85 mg/dl (70-99); Potassium 3.7 mmol/L (3.5-5.1); Sodium 134 mmol/L (135-145); Total Protein 5.1 g/dl (6.3-8.2); eGFR > 60.00
== END ==
LOC: OLABWHC 10:39
PROVIDERS: ATTENDING PHYSICIAN Family Medicine
DX: M86.9 Osteomyelitis, unspecified (principal); C43.61 Malignant melanoma of right upper limb, including shoulder
CPT/HCPCS: 36415; 80053; 85027

== ENCOUNTER → 2025-04-24 10:43 | Outpatient (REF) | payer OTHER, MEDICARE, SELFPAY ==
[2025-04-24 11:49] LABS: Hematocrit 29.9 % (37.0-47.0); Hemoglobin 8.7 g/dL (12.0-16.0); Mean Corp Hgb Conc. 29.1 g/dL (33.0-37.0); Mean Corpuscular Volume 111.6 fL (81.0-99.0); Platelet Count 242 10^3/uL (130-400); Red Cell Dist. Width 14.9 % (11.5-14.5)
[2025-04-24 11:57] LABS: ALT (SGPT) 12 U/L (0-35); AST (SGOT) 17 U/L (14-36); Albumin 2.9 g/dl (3.5-5.0); Alkaline Phosphatase 95 U/L (38-126); Blood Urea Nitrogen 13 mg/dl (7-17); Calcium 8.2 mg/dl (8.4-10.2); Carbon Dioxide 27 mmol/L (22-30); Chloride 105 mmol/L (98-107); Glucose 86 mg/dl (70-99); Potassium 3.7 mmol/L (3.5-5.1); Sodium 133 mmol/L (135-145); Total Protein 5.3 g/dl (6.3-8.2); eGFR > 60.00
== END ==
LOC: OLABWHC 10:43
PROVIDERS: ATTENDING PHYSICIAN Family Medicine
DX: M86.9 Osteomyelitis, unspecified (principal)
CPT/HCPCS: 36415; 80053; 85027

== ENCOUNTER → 2025-05-01 11:39 | Outpatient (REF) | payer OTHER, MEDICARE, SELFPAY ==
[2025-05-01 12:15] LABS: Hematocrit 32.9 % (37.0-47.0); Hemoglobin 9.5 g/dL (12.0-16.0); Mean Corp Hgb Conc. 28.9 g/dL (33.0-37.0); Mean Corpuscular Volume 107.2 fL (81.0-99.0); Nucleated Red Blood Cells % 0.2 %; Platelet Count 241 10^3/uL (130-400); Red Cell Dist. Width 14.8 % (11.5-14.5); Reticulocyte Count 3.3 % (0.4-2.8)
[2025-05-01 12:22] LABS: LDH 303 U/L (120-246)
[2025-05-01 12:23] LABS: Iron < 20 ug/dl (37-170)
[2025-05-01 12:31] LABS: Total Iron Binding Capacity 342 ug/dl (265-497)
[2025-05-01 12:57] LABS: Ferritin 68.6 ng/ml (11.1-264.0)
[2025-05-01 13:28] LABS: Folate 9.2 ng/ml (2.76-20)
[2025-05-01 15:25] LABS: Vitamin B12 576 pg/ml (239-931)
== END ==
LOC: OLABWHC 11:39
PROVIDERS: ATTENDING PHYSICIAN Family Medicine
DX: R63.4 Abnormal weight loss (principal); M86.9 Osteomyelitis, unspecified
CPT/HCPCS: 36415; 82607; 82728; 82746; 83010; 83540; 83550; 83615; 85025; 85045; 85652; 86880

== ENCOUNTER → 2025-05-08 11:35 | Outpatient (REF) | payer OTHER, MEDICARE, SELFPAY ==
[2025-05-08 12:02] LABS: Hematocrit 29.1 % (37.0-47.0); Hemoglobin 8.8 g/dL (12.0-16.0); Mean Corp Hgb Conc. 30.2 g/dL (33.0-37.0); Mean Corpuscular Volume 101.0 fL (81.0-99.0); Platelet Count 257 10^3/uL (130-400); Red Cell Dist. Width 15.0 % (11.5-14.5)
[2025-05-08 12:22] LABS: Blood Urea Nitrogen 10 mg/dl (7-17); Calcium 8.0 mg/dl (8.4-10.2); Carbon Dioxide 25 mmol/L (22-30); Chloride 105 mmol/L (98-107); Glucose 89 mg/dl (70-99); Potassium 4.2 mmol/L (3.5-5.1); Sodium 135 mmol/L (135-145); eGFR > 60.00
== END ==
LOC: OLABWHC 11:35
PROVIDERS: ATTENDING PHYSICIAN Family Medicine
DX: M86.9 Osteomyelitis, unspecified (principal)
CPT/HCPCS: 36415; 80048; 85027

== ENCOUNTER → 2025-05-11 09:27 | Outpatient (REF) | payer OTHER, MEDICARE, SELFPAY ==
[2025-05-11 11:35] LABS: Hematocrit 30.3 % (37.0-47.0); Hemoglobin 9.1 g/dL (12.0-16.0); Mean Corp Hgb Conc. 30.0 g/dL (33.0-37.0); Mean Corpuscular Volume 101.7 fL (81.0-99.0); Platelet Count 266 10^3/uL (130-400); Red Cell Dist. Width 15.0 % (11.5-14.5)
[2025-05-11 12:20] LABS: Blood Urea Nitrogen 8 mg/dl (7-17); Calcium 8.3 mg/dl (8.4-10.2); Carbon Dioxide 25 mmol/L (22-30); Chloride 104 mmol/L (98-107); Glucose 90 mg/dl (70-99); Potassium 4.0 mmol/L (3.5-5.1); Sodium 131 mmol/L (135-145); eGFR > 60.00
== END ==
LOC: OLABWHC 09:27
PROVIDERS: ATTENDING PHYSICIAN Family Medicine
DX: M86.9 Osteomyelitis, unspecified (principal); E46 Unspecified protein-calorie malnutrition
CPT/HCPCS: 36415; 80048; 85027

== ENCOUNTER → 2025-05-18 07:18 | Outpatient (REF) | payer MEDICARE, SELFPAY | LOC: RAD 07:18 | PROVIDERS: ATTENDING PHYSICIAN Internal Medicine Hematology & Oncology; FAMILY PHYSICIAN Physician Assistant | DX: C44.82 Squamous cell carcinoma of overlapping sites of skin (principal) | CPT/HCPCS: 71260; 74177; Q9967 ==

== ENCOUNTER 2025-06-22 06:52 | Outpatient (RCR) | payer MEDICARE, SELFPAY | END 2025-06-22 23:59 | disposition home or self-care (01) | LOC: ROT 06:52 | PROVIDERS: ATTENDING PHYSICIAN Orthopaedic Surgery; FAMILY PHYSICIAN Physician Assistant | DX: Z47.81 Encounter for orthopedic aftercare following surgical amputation (principal); S61.402D Unspecified open wound of left hand, subsequent encounter; Z73.6 Limitation of activities due to disability; C76.8 Malignant neoplasm of other specified ill-defined sites; M06.9 Rheumatoid arthritis, unspecified; Z89.021 Acquired absence of right finger(s) | CPT/HCPCS: 97018; 97166; 97535 ==